=== PATIENT | male | born 1955 | race Caucasian/White ===

== ENCOUNTER 2018-03-08 21:07 | Emergency (ER) | payer OTHER ==
[~2018-03-08] VITALS: Ht 170.2 cm; Wt 89.8 kg
[2018-03-08 21:18] VITALS: Ht 170.2 cm; Wt 89.8 kg
[2018-03-08 22:36] VITALS: BP 139/88
== END 2018-03-08 22:36 | disposition home or self-care (01) ==
LOC: ED 21:07
DX: S62.600A Fracture of unspecified phalanx of right index finger, initial encounter for closed fracture (principal); L03.011 Cellulitis of right finger; X58.XXXA Exposure to other specified factors, initial encounter; Y93.89 Activity, other specified; Y92.89 Other specified places as the place of occurrence of the external cause; Y99.8 Other external cause status